=== PATIENT | female | born 1965 | race Caucasian/White ===

== ENCOUNTER 2019-12-24 12:28 | Emergency (ER) | payer MEDICAID, OTHER ==
[~2019-12-24] VITALS: Ht 157.5 cm; Wt 106.6 kg
[~2019-12-24 12:28] MED LIST: AMLO5TAB4 PO; CARV12.548 PO; CEL20 PO; HYDR25TA4 PO; ISO10 GT; LIP10 PO; LISI40TA4 PO
[2019-12-24] MEDS ORDERED: fentaNYL CITRATE/PF 100 MCG/2 ML AMP IVP ONE (12:30)
[2019-12-24 12:31] VITALS: BP_SYST 170
[2019-12-24 14:42] VITALS: BP_SYST 160
== END 2019-12-24 14:43 | disposition home or self-care (01) ==
LOC: SED 12:28
DX: S82.892A Other fracture of left lower leg, initial encounter for closed fracture (principal); I10 Essential (primary) hypertension; Z79.899 Other long term (current) drug therapy; W01.0XXA Fall on same level from slipping, tripping and stumbling without subsequent striking against object, initial encounter; Y93.89 Activity, other specified; Y92.89 Other specified places as the place of occurrence of the external cause; Y99.8 Other external cause status
CPT/HCPCS: 27825; 73590; 73600; 73610; 99284; J3010; 96374; 99283